=== PATIENT | female | born 1970 | race Caucasian/White ===

== ENCOUNTER 2022-09-03 14:29 | Outpatient (RCR) | payer OTHER | END 2022-09-20 | disposition home or self-care (01) | LOC: WSOH | DX: S67.191D Crushing injury of left index finger, subsequent encounter (principal); S61.211D Laceration without foreign body of left index finger without damage to nail, subsequent encounter; I10 Essential (primary) hypertension; K21.9 Gastro-esophageal reflux disease without esophagitis; L73.2 Hidradenitis suppurativa; C80.1 Malignant (primary) neoplasm, unspecified; Y99.0 Civilian activity done for income or pay ==